=== PATIENT | male | born 1995 | race Two or more races ===

== ENCOUNTER 2019-07-12 08:00 | Emergency (ER) | payer OTHER ==
[~2019-07-12] VITALS: Ht 175.3 cm; Wt 85.7 kg
[2019-07-12 08:13] VITALS: BP 130/74
== END 2019-07-12 09:00 | disposition home or self-care (01) ==
LOC: ER 08:00
DX: J06.9 Acute upper respiratory infection, unspecified (principal)
CPT/HCPCS: 71046